=== PATIENT | female | born 1940 | race Caucasian/White ===

== ENCOUNTER → 2017-01-07 | Outpatient (CLI) | payer MEDICARE, MEDICAID | END | disposition home or self-care (01) | LOC: CVU 11:20 | PROVIDERS: ATTEND Internal Medicine Cardiovascular Disease | DX: J44.9 Chronic obstructive pulmonary disease, unspecified (principal); E78.5 Hyperlipidemia, unspecified; I73.9 Peripheral vascular disease, unspecified; R60.9 Edema, unspecified; R06.02 Shortness of breath | CPT/HCPCS: 93306; 93880; 94060; 94726; 94729 ==

== ENCOUNTER → 2017-01-15 | Outpatient (CLI) | payer MEDICARE, MEDICAID ==
[~2017-01-15] MED LIST: REGADENOSON 0.4 MG/5 ML SYRINGE ONE
== END | disposition home or self-care (01) ==
LOC: CFH 07:51
PROVIDERS: ATTEND Internal Medicine Cardiovascular Disease
DX: J44.9 Chronic obstructive pulmonary disease, unspecified (principal); I73.9 Peripheral vascular disease, unspecified; R60.9 Edema, unspecified; E78.5 Hyperlipidemia, unspecified
CPT/HCPCS: 78452; 93017; A9502; J2785

== ENCOUNTER → 2017-02-26 | Outpatient (CLI) | payer MEDICARE, MEDICAID | END | disposition home or self-care (01) | LOC: CVU 12:44 | PROVIDERS: ATTEND Surgery | DX: I73.9 Peripheral vascular disease, unspecified (principal) | CPT/HCPCS: 93922 ==

== ENCOUNTER 2018-06-17 12:25 | Emergency (ER) | payer MEDICARE, MEDICAID ==
[~2018-06-17] VITALS: Ht 154.9 cm; Wt 56.2 kg
[2018-06-17 12:29] VITALS: BP 167/52
[2018-06-17] MEDS ORDERED: PLEASE ENTER ALLERGIES MC SCH (13:00)
[2018-06-17] MEDS ORDERED: DIPH,PERTUSS(ACELL),TET VAC/PF 0.5 ML IM-VACC ONE ×2 (13:00→13:08)
== END 2018-06-17 13:33 | disposition home or self-care (01) ==
LOC: ED 13:27
DX: S91.332A Puncture wound without foreign body, left foot, initial encounter (principal); F17.200 Nicotine dependence, unspecified, uncomplicated; W22.8XXA Striking against or struck by other objects, initial encounter; Y93.89 Activity, other specified; Y92.098 Other place in other non-institutional residence as the place of occurrence of the external cause; Y99.8 Other external cause status
CPT/HCPCS: 90471; 90715; 99283

== ENCOUNTER 2018-08-31 09:12 | Emergency (ER) | payer MEDICARE, MEDICAID ==
[~2018-08-31] VITALS: Ht 154.9 cm; Wt 55.7 kg
[2018-08-31 09:15] VITALS: BP 125/68
[2018-08-31] MEDS ORDERED: LISI10TA2 PO (09:54)
[2018-08-31] MEDS ORDERED: ATOR-2 PO (09:55)
[2018-08-31] MEDS ORDERED: ALBUTEROL SULFATE 2.5 MG/3 ML NPPB ONE (11:30)
[2018-08-31] MEDS ORDERED: ALBUTEROL SULFATE 2.5 MG/3 ML ONE (11:33)
[2018-08-31] MEDS ORDERED: ALBUTEROL/IPRATROPIUM 2.5MG/0.5MG, 3 ML ONE (11:33)
[2018-08-31 11:45] LABS: BASOPHILS % (AUTO) 0 % (0-1); EOSINOPHILS # (AUTO) 0.03 x10^3/uL (0-0.4); EOSINOPHILS % (AUTO) 1 % (1-7); LYMPHOCYTES # (AUTO) 0.51 x10^3/uL (1-3.4); LYMPHOCYTES % (AUTO) 16 % (22-44); MD NO; MEAN CORPUSCULAR HEMOGLOBIN 30.1 pg (27.0-34.8); MEAN CORPUSCULAR HGB CONC 34.3 g/dL (32.4-35.8); MEAN CORPUSCULAR VOLUME 87.9 fL (80-100); MEAN PLATELET VOLUME 11.2 fL (7.4-10.4); MONOCYTES # (AUTO) 0.15 x10^3/uL (0.2-0.8); MONOCYTES % (AUTO) 5 % (2-9); NEUTROPHILS # (AUTO) 2.59 x10^3/uL (1.8-6.8); NEUTROPHILS % (AUTO) 79 % (42-75); PLATELET COUNT 126 x10^3/uL (130-400); RED BLOOD COUNT 4.14 x10^6/uL (3.82-5.3); RED CELL DISTRIBUTION WIDTH 13.1 % (9.6-15.2)
[2018-08-31 11:54] LABS: ANION GAP 6 mmol/L (5-15); CALCIUM 8.5 mg/dL (8.5-10.1); CHLORIDE 108 mmol/L (98-107); CREATININE 0.55 mg/dL (0.55-1.02)
== END 2018-08-31 12:24 | disposition home or self-care (01) ==
LOC: ED 09:29
DX: J43.9 Emphysema, unspecified (principal); J18.9 Pneumonia, unspecified organism; Z87.891 Personal history of nicotine dependence
CPT/HCPCS: 36415; 71046; 80048; 85025; 93005; 94640; 99284; J7613

== ENCOUNTER 2020-12-26 13:21 | Outpatient (CLI) | payer MEDICARE, MEDICAID ==
[~2020-12-26 13:21] MED LIST changes: +ATOR-2 PO; +LISI10TA19 PO; -REGADENOSON 0.4 MG/5 ML SYRINGE ONE
== END 2020-12-26 23:59 | disposition home or self-care (01) ==
LOC: CVU 13:21
PROVIDERS: ATTEND Family Medicine
DX: I65.23 Occlusion and stenosis of bilateral carotid arteries (principal); I73.9 Peripheral vascular disease, unspecified; I10 Essential (primary) hypertension; Z87.891 Personal history of nicotine dependence
CPT/HCPCS: 93880; 93922

== ENCOUNTER → 2021-02-08 | Outpatient (CLI) | payer MEDICARE, MEDICAID | END | disposition home or self-care (01) | LOC: PETCFH 11:43 | PROVIDERS: ATTEND Family Medicine | DX: R91.1 Solitary pulmonary nodule (principal) | CPT/HCPCS: 78815; A9552 ==

== ENCOUNTER 2021-03-23 07:20 | Day surgery (SDC) | payer MEDICARE, MEDICAID ==
[~2021-03-23] VITALS: Ht 154.9 cm; Wt 74.5 kg
[2021-03-23 07:57] VITALS: BP 185/81
[2021-03-23] MEDS ORDERED: TRELEGY (08:10)
[2021-03-23] MEDS ORDERED: HYDROCODONE PO (08:10)
[2021-03-23] MEDS ORDERED: [UNRECOGNIZED DRUG - OTHER] (08:10)
[2021-03-23] MEDS ORDERED: DOXAZOSIN PO (08:10)
[2021-03-23] MEDS ORDERED: TIMOLOL PO (08:10)
[2021-03-23] MEDS ORDERED: METHADONE PO (08:10)
[2021-03-23] MEDS ORDERED: [UNRECOGNIZED DRUG - OTHER] (08:10)
[2021-03-23] MEDS ORDERED: ALBUTEROL INH (08:10)
[2021-03-23] MEDS ORDERED: ROSUVASTATIN (08:18)
[2021-03-23] MEDS ORDERED: MIDAZOLAM 1 MG/ML, 5ML ONE ×2 (09:17)
[2021-03-23] MEDS ORDERED: FENTANYL PF 100 MCG/2ML ONE ×2 (09:17)
[2021-03-23] MEDS ORDERED: NALOXONE 1 MG/ML, 2ML ONE (09:17)
[2021-03-23] MEDS ORDERED: FLUMAZENIL 0.1 MG/1 ML, 5ML ONE (09:17)
== END 2021-03-23 12:00 | disposition home or self-care (01) ==
LOC: OUT 07:20
PROVIDERS: ATTEND Thoracic Surgery (Cardiothoracic Vascular Surgery)
DX: D38.1 Neoplasm of uncertain behavior of trachea, bronchus and lung (principal); J98.4 Other disorders of lung; J44.9 Chronic obstructive pulmonary disease, unspecified; I10 Essential (primary) hypertension; Z79.891 Long term (current) use of opiate analgesic; Z79.899 Other long term (current) drug therapy; Z87.891 Personal history of nicotine dependence; Z80.42 Family history of malignant neoplasm of prostate
CPT/HCPCS: 32408; 71045; 88305; 99156; 99157; C2613; J2250; J3010; 77012; J2310